=== PATIENT | female | born 1945 | race Caucasian/White ===

== ENCOUNTER 2021-07-27 10:35 | Emergency (ER) | payer MEDICARE ==
[~2021-07-27] VITALS: Ht 152.4 cm; Wt 107.0 kg
[2021-07-27 11:21] LABS: HEMATOCRIT 34.8 % (37.0-47.0); HEMOGLOBIN 11.1 gm/dL (12.0-15.0); MCH 32.9 pg (26.0-34.0); MCHC 31.9 g/dL (28.0-37.0); MCV 103.2 fL (80.0-100.0); PLATELET COUNT 364 thou/uL (150-400); RBC 3.37 mil/uL (4.20-5.00); RDW 17.7 % (10.5-14.5); WBC 12.7 thou/uL (4.0-11.0)
[2021-07-27 11:30] LABS: CALCIUM 9.6 mg/dL (8.5-10.1); CREATININE 1.2 mg/dL (0.6-1.0); POTASSIUM 4.1 mmol/L (3.5-5.1)
[2021-07-27 11:35] LABS: ALBUMIN 3.5 g/dL (3.4-5.0); TOTAL BILIRUBIN 0.4 mg/dL (0.2-1.0); TOTAL PROTEIN 7.6 g/dL (6.4-8.2)
[2021-07-27 12:05] LABS: ABSOLUTE NEUTROPHILS 9.8 thou/uL (1.4-8.2); NUCLEATED RBCS 1 /100WBC; PLATELET ESTIMATE NORMAL
[2021-07-27] MEDS ORDERED: BACTRIM DS TAB1 EAC1 PO (13:22)
== END 2021-07-27 13:22 | disposition home or self-care (01) ==
LOC: ER 10:35
PROVIDERS: Nurse Practitioner Family
DX: L03.116 Cellulitis of left lower limb (principal); E11.9 Type 2 diabetes mellitus without complications; I10 Essential (primary) hypertension; E03.9 Hypothyroidism, unspecified